=== PATIENT | male | born 1965 | race African-American/Black ===

== ENCOUNTER 2020-04-02 14:46 | Observation (INO) | payer OTHER ==
[~2020-04-02] VITALS: Ht 180.3 cm; Wt 91.7 kg
--- NOTE | 2020-04-02 17:11 | NUR ---
PATIENT STATES THAT THE TYLENOL HAS HELPED WITH THE HEADACHE AND CHEST DISCOMFORT.
--- NOTE | 2020-04-02 19:50 | NUR ---
A 54, admitted to , under the services of SHMUEL Valentino DO with a diagnosis of CHEST PAIN R/O ACUTE MYOCARDIAL INFARCTION. Chief complaint is CHEST PAIN. Patient arrived via ambulance from ER. Monitor applied. Initial assessment completed. Vital signs taken and recorded. SHMUEL VALENTINO DO notified of admission to the unit. Orders received. See assessment for past medical history, medications and allergies. Patient and/or family oriented to unit. [facility] visitation policy reviewed. Clothing/patient valuable form completed. TAWANDA PINO
--- NOTE | 2020-04-02 21:21 | NUR ---
DR. HENDERSON'S ANSWERING SERVICE NOTIFIED OF CONSULT FOR CHEST PAIN AND ELEVATED TROPONIN OF 0.049.
--- NOTE | 2020-04-03 10:42 | NUR ---
OFF UNIT FOR STRESS TEST.
--- NOTE | 2020-04-03 11:01 | NUR ---
INFOREMD SIGNED CONSENT OBTAINED FOR LEXISCAN STRESS TEST WITH DR HENDERSON. RESTING EKG NSR HR 71 BP 132/82. PULSE OX 100% LUNGS CLEAR. PT COMPLETED ONE MINUTE OF A LEXISCAN PROTOCOL WITH PT RECEIVING LEXISCAN 0.4MG IV OVER 10 SECONDS. PVC NOTED, NON DIAGNOSTIC ST CHANGES SEEN. PT C/O SOB AND NAUSEA WITH INJECTION, RESOLVED IN RECOVERY. LAST RECOVERY HR OF 97 BP 110/74. PT IN STABLE CONDITION, AWAITING NUCLEAR IMAGES.
--- NOTE | 2020-04-03 11:20 | NUR ---
Autism Specialist in to talk to patient. Patient states lives at HOME with EMANI AND THEIR KIDS. There are 10 steps in the home. Physician: ENIO NM, DOES NOT REMEMBER DOCTORS NAME Pharmacy: [facility] Home health services: NONE Patient's level of ADLs: INDEPENDENT Patient has working utilities: YES DME: NONE Follow-up physician's appointment after d/c: PREFERS TO MAKE OWN AFTER DISCHARGE Does patient want to access PORTAL?: NO Discharge plan PT LIVES AT HOME WITH HIS FIANCE AND KIDS AND IS INDEPENDENT IN HIS CARE. DENIES HE WILL HAVE ANY NEEDS AFTER DISCHARGE. PLAN IS TO RETURN HOME WHEN MEDICALLY STABLE. WILL CONTINUE TO FOLLOW.. HEYDI NAVARRO
--- NOTE | 2020-04-03 12:15 | NUR ---
PT REQUESTING REGULAR DIET, DR LUNSFORD NOTIFIED. ORDERS RECIEVED.
--- NOTE | 2020-04-03 16:00 | NUR ---
Patient resting quietly with no c/o discomfort. Respirations easy and regular. Vital signs stable. No overt distress. ODALIS WATSON R
--- NOTE | 2020-04-03 19:19 | NUR ---
Discharge instructions reviewed with patient/family. Patient receptive and verbalizes understanding. Follow-up care arranged. Written instructions given to patient/family. ODALIS WATSON
== END 2020-04-03 19:19 | disposition home or self-care (01) ==
LOC: ED 14:46 → 5E 18:18 → EDHOLD 18:18 → 5E 20:19
PROVIDERS: ADMIT Internal Medicine; ATTEND Internal Medicine
DX: R07.89 Other chest pain (principal); R77.8 Other specified abnormalities of plasma proteins; E83.41 Hypermagnesemia; I10 Essential (primary) hypertension; K21.9 Gastro-esophageal reflux disease without esophagitis; E87.8 Other disorders of electrolyte and fluid balance, not elsewhere classified; F17.210 Nicotine dependence, cigarettes, uncomplicated; E55.9 Vitamin D deficiency, unspecified

== ENCOUNTER 2021-08-18 11:12 | Emergency (ER) | payer OTHER ==
[~2021-08-18] VITALS: Wt 82.6 kg
[~2021-08-18 11:12] MED LIST: ATORVASTATIN CA40 M1 PO; NORVASC10 MG PO; VITAMIN D3125 MC1 PO
[2021-08-18 11:33] LABS: HEMATOCRIT 44.3 % (42.0-52.0); MEAN CELL VOLUME 91.3 fl (80.0-94.0); MEAN CORPUSCULAR HGB 30.3 pg (27.0-31.0); MEAN CORPUSCULAR HGB CONC 33.2 g/dl (33.0-37.0); MEAN PLATELET VOLUME 10.7 fl (9.6-12.3); PLATELET COUNT AUTOMATED 261 10*3/uL (130-400); RED BLOOD COUNT 4.85 10*6/uL (4.50-5.90); RED CELL DISTRI WIDTH 11.4 % (0-14.5); WHITE BLOOD COUNT 6.2 10*3/uL (4.8-10.8)
[2021-08-18 11:37] LABS: MANUAL DIFF REFLEX YES
[2021-08-18 11:46] LABS: ACT PARTIAL THROMBO TIME 30.6 SECONDS (20.0-32.1)
[2021-08-18 11:50] LABS: ALKALINE PHOSPHATASE 67 U/L (45-117); BUN 32 mg/dl (7-24); CHLORIDE 104 mmol/L (98-107); CREATININE 1.46 mg/dL (0.70-1.30); POTASSIUM 3.8 mmol/L (3.5-5.1); SGOT/AST 30 IU/L (3-35); SGPT/ALT 72 U/L (12-78); SODIUM 134 mmol/L (136-145); TOTAL PROTEIN 8.2 gm/dL (6.4-8.2)
[2021-08-18 11:53] LABS: BASOPHILS 1 % (0-1); PLATELET SUFFICIENCY NORMAL (NORMAL); TOTAL CELLS COUNTED 100 #CELLS
[2021-08-18] MEDS ORDERED: LISINOPRIL20 MG PO (12:16)
[2021-08-18] MEDS ORDERED: OMEPRAZOLE MAGN20 MG PO (12:16)
[2021-08-18] MEDS ORDERED: ATORVASTATIN CA20 M1 PO (12:17)
[2021-08-18] MEDS ORDERED: ASPIRIN ADULT L81 M1 PO (14:03)
== END 2021-08-18 14:05 | disposition home or self-care (01) ==
LOC: ED 11:12
PROVIDERS: Emergency Medicine
DX: R42 Dizziness and giddiness (principal); R20.0 Anesthesia of skin; F12.90 Cannabis use, unspecified, uncomplicated; F17.200 Nicotine dependence, unspecified, uncomplicated; K21.9 Gastro-esophageal reflux disease without esophagitis; E78.00 Pure hypercholesterolemia, unspecified; Z79.899 Other long term (current) drug therapy